=== PATIENT | female | born 1970 | race Caucasian/White ===

== ENCOUNTER → 2018-03-17 08:32 | Outpatient (CLI) | payer OTHER, SELFPAY ==
--- NOTE | 2018-03-17 08:33 | DI.MG.S_ITS ---
BILATERAL DIGITAL SCREENING MAMMOGRAM 3D/2D WITH CAD: 03/17/2018 CLINICAL: Routine screening. Family history of breast cancer. Comparison is made to exams dated: 02/15/2017 mammogram, 01/22/2017 mammogram, and 07/08/2015 mammogram - [facility]. The tissue of both breasts is heterogeneously dense. This may lower the sensitivity of mammography. Current study was also evaluated with a Computer Aided Detection (CAD) system. No significant masses, calcifications, or other findings are seen in either breast. There has been no significant interval change. IMPRESSION: NEGATIVE There is no mammographic evidence of malignancy. A 1 year screening mammogram is recommended. This exam was interpreted at Station ID: [id number]. NOTE: For mammograms, a report in lay terms will be sent to the patient. Approximately 15% of breast malignancies will not be visualized mammographically. In the management of a palpable breast mass, a negative mammogram must not discourage biopsy of a clinically suspicious lesion. Electronically Signed By: Otto starr/[email or web address]:03/18/2018 07:42:33 letter sent: Normal Exam ACR BI-RADS Category 1: Negative 3341F
== END ==
PROVIDERS: Family Provider Physician Assistant; PCP Physician Assistant; Visit Provider Physician Assistant
DX: Z12.31 Encounter for screening mammogram for malignant neoplasm of breast (principal); Z80.3 Family history of malignant neoplasm of breast
CPT/HCPCS: 77063; 77067

== ENCOUNTER → 2019-06-21 07:44 | Outpatient (CLI) | payer OTHER, SELFPAY ==
--- NOTE | 2019-06-21 | DI.MG.S_ITS ---
BILATERAL DIGITAL SCREENING MAMMOGRAM 3D/2D WITH CAD: 06/21/2019 CLINICAL: Routine screening. Family history of breast cancer. Comparison is made to exams dated: 03/17/2018 mammogram, 01/22/2017 mammogram, and 07/08/2015 mammogram - [facility]. The tissue of both breasts is heterogeneously dense. This may lower the sensitivity of mammography. Current study was also evaluated with a Computer Aided Detection (CAD) system. No significant masses, calcifications, or other findings are seen in either breast. There has been no significant interval change. IMPRESSION: NEGATIVE There is no mammographic evidence of malignancy. A 1 year screening mammogram is recommended. This exam was interpreted at Station ID: [id number]. NOTE: For mammograms, a report in lay terms will be sent to the patient. Approximately 15% of breast malignancies will not be visualized mammographically. In the management of a palpable breast mass, a negative mammogram must not discourage biopsy of a clinically suspicious lesion. Electronically Signed By: Don mayes/[email or web address]:06/21/2019 08:37:22 letter sent: Normal Exam ACR BI-RADS Category 1: Negative 3341F
== END ==
PROVIDERS: Family Provider Physician Assistant; PCP Physician Assistant; Visit Provider Physician Assistant
DX: Z12.31 Encounter for screening mammogram for malignant neoplasm of breast (principal); Z80.3 Family history of malignant neoplasm of breast
CPT/HCPCS: 77063; 77067

== ENCOUNTER → 2020-07-16 16:19 | Outpatient (CLI) | payer OTHER, SELFPAY ==
--- NOTE | 2020-07-16 | DI.MG.S_ITS ---
BILATERAL DIGITAL SCREENING MAMMOGRAM 3D/2D WITH CAD: 07/16/2020 CLINICAL: Routine screening. Family history of breast cancer. Comparison is made to exams dated: 06/21/2019 mammogram, 03/17/2018 mammogram, 02/15/2017 mammogram, and 01/22/2017 mammogram - [facility]. There are scattered fibroglandular elements in both breasts. Current study was also evaluated with a Computer Aided Detection (CAD) system. No significant masses, calcifications, or other findings are seen in either breast. There has been no significant interval change. IMPRESSION: NEGATIVE There is no mammographic evidence of malignancy. A 1 year screening mammogram is recommended. This exam was interpreted at Station ID: [id number]. NOTE: For mammograms, a report in lay terms will be sent to the patient. Approximately 15% of breast malignancies will not be visualized mammographically. In the management of a palpable breast mass, a negative mammogram must not discourage biopsy of a clinically suspicious lesion. Electronically Signed By: Dina keyes/alexandria:07/23/2020 11:43:28 letter sent: Normal Exam ACR BI-RADS Category 1: Negative 3341F
== END ==
PROVIDERS: Family Provider Physician Assistant; PCP Physician Assistant; Referring Provider Physician Assistant; Visit Provider Physician Assistant
DX: Z12.31 Encounter for screening mammogram for malignant neoplasm of breast (principal); Z80.3 Family history of malignant neoplasm of breast
CPT/HCPCS: 77063; 77067

== ENCOUNTER → 2021-09-05 16:54 | Outpatient (CLI) | payer OTHER, SELFPAY ==
[2021-09-05 17:57] LABS: Add Manual Diff / Slide Review NO; Basophils Absolute Auto 0 /uL (0-100); Basophils Percent Auto 0.6 % (0-2); Eosinophils Absolute Auto 200 /uL (0-450); Eosinophils Percent Auto 2.1 % (2-4); Hematocrit 39.7 % (36-46); Hemoglobin 13.4 g/dL (12.0-16.0); Lymphocytes Absolute Auto 2500 /uL (1100-4500); Mean Corpuscular HGB Conc 33.8 % (30-36); Mean Corpuscular Hemoglobin 28.8 PG (26-34); Monocytes Absolute Auto 500 /uL (0-900); Monocytes Percent Auto 6.3 % (3-14); Neutrophils Absolute Auto 4100 /uL (1500-7000); Platelet Count 242 X10^3/uL (150-400); Red Blood Cell Count 4.67 X10^6/uL (4.0-5.2); Red Cell Distribution Width 13.4 % (11.6-14.8); White Blood Cell Count 7.3 X10^3/uL (4.5-11.0)
[2021-09-05 18:33] LABS: INR 1.1 (0.9-1.3); Prothrombin Time 12.1 SECONDS (10.1-12.7)
[2021-09-05 19:10] LABS: Alanine Aminotransferase 105 IU/L (<35); Albumin 4.4 g/dL (3.5-5.0); Albumin Globulin Ratio 0.9 (1.0-2.8); Alkaline Phosphatase 430 U/L (38-126); Aspartate Aminotransferase 82 IU/L (14-36); Bilirubin Total 0.6 mg/dL (0.2-1.3); Blood Urea Nitrogen 13 mg/dL (7-17); Calcium 10.1 mg/dL (8.4-10.2); Carbon Dioxide 28 mmol/L (22-32); Chloride 103 mmol/L (98-107); Estimated Glomerular Filt Rate > 60.0 mL/min (>60); Globulin 4.8 g/dL (1.7-4.1); Glucose 98 mg/dL (70-100); HEMOLYSIS < 15 (0-50); Potassium 4.2 mmol/L (3.4-5.1); Sodium 140 mmol/L (137-145); Total Protein 9.2 g/dL (6.3-8.2)
[2021-09-06 06:50] LABS: Alpha Fetoprotein 1.9 ng/mL (0.0-8.3)
== END ==
PROVIDERS: Family Provider Physician Assistant; PCP Physician Assistant; Referring Provider Internal Medicine Gastroenterology; Visit Provider Internal Medicine Gastroenterology
DX: K74.60 Unspecified cirrhosis of liver (principal); K74.3 Primary biliary cirrhosis; R79.89 Other specified abnormal findings of blood chemistry
CPT/HCPCS: 36415; 80053; 82105; 85025; 85610

== ENCOUNTER → 2021-09-15 16:37 | Outpatient (CLI) | payer OTHER, SELFPAY ==
--- NOTE | 2021-09-15 | DI.MG.S_ITS ---
BILATERAL DIGITAL SCREENING MAMMOGRAM 3D/2D WITH CAD: 09/15/2021 CLINICAL: Routine screening. Family history of breast cancer. Comparison is made to exams dated: 07/16/2020 mammogram, 06/21/2019 mammogram, and 03/17/2018 mammogram - [facility]. There are scattered fibroglandular elements in both breasts. Current study was also evaluated with a Computer Aided Detection (CAD) system. No significant masses, calcifications, or other findings are seen in either breast. There has been no significant interval change. IMPRESSION: NEGATIVE There is no mammographic evidence of malignancy. A 1 year screening mammogram is recommended. This exam was interpreted at Station ID: [id number]. NOTE: For mammograms, a report in lay terms will be sent to the patient. Approximately 15% of breast malignancies will not be visualized mammographically. In the management of a palpable breast mass, a negative mammogram must not discourage biopsy of a clinically suspicious lesion. Electronically Signed By: Jason [email or web address]:09/16/2021 09:48:41 letter sent: Normal Exam ACR BI-RADS Category 1: Negative 3341F
== END ==
PROVIDERS: Referring Provider Physician Assistant; Visit Provider Physician Assistant
DX: Z12.31 Encounter for screening mammogram for malignant neoplasm of breast (principal); Z80.3 Family history of malignant neoplasm of breast
CPT/HCPCS: 77063; 77067

== ENCOUNTER → 2021-10-29 11:41 | Outpatient (CLI) | payer OTHER, SELFPAY ==
--- NOTE | 2021-10-29 | DI.US.S_ITS ---
PROCEDURE: US ABDOMEN COMPLETE INDICATIONS: biliary cirrhosis,abnormal finding blood chemistry TECHNIQUE: Real-time scanning was performed of the abdominal and retroperitoneal organs, with image documentation. COMPARISON: [facility], US, ABDOMEN COMPLETE, 03/05/2017, 8:26. FINDINGS: Liver: The liver appears somewhat small and has some heterogeneity of echo pattern. The surface is smooth. Question cirrhotic change. Gallbladder: Surgically absent Biliary ducts: Intrahepatic bile ducts are non-dilated. Extrahepatic bile duct caliber measures 2.4 mm at the common hepatic duct and 6 mm at the common bile duct. Normal is 6-7 mm or less in diameter, or 10 mm or less post-cholecystectomy. Pancreas: Visualized portions of the pancreas are sonographically normal. Spleen: Spleen is normal in size and homogeneous in echotexture. It measures 10.2 cm. Kidneys: Kidneys are normal in size and echotexture. Right kidney measures 10.6 cm long; left kidney measures 10.4 cm long. No hydronephrosis or nephrolithiasis. No solid masses. Aorta: Visualized aorta is normal in caliber at less than 3 cm. Iliacs: Proximal common iliac arteries are normal in caliber at less than 2.5 cm. IVC: Intrahepatic inferior vena cava is patent. Miscellaneous: No free abdominal fluid. IMPRESSION: 1. Question possible cirrhotic change in the liver. 2. No dilated bile ducts. 3. Remote cholecystectomy. Comment:. Consider multiphase CT or MRI for further evaluation of the liver. Dictated by: Papo Howard M.D. on 10/29/2021 at 14:11 Approved by: Papo Howard M.D. on 10/29/2021 at 14:19
== END ==
PROVIDERS: Referring Provider Internal Medicine Gastroenterology; Visit Provider Internal Medicine Gastroenterology
DX: K74.3 Primary biliary cirrhosis (principal); K74.60 Unspecified cirrhosis of liver; R79.89 Other specified abnormal findings of blood chemistry; Z90.49 Acquired absence of other specified parts of digestive tract
CPT/HCPCS: 76700

== ENCOUNTER → 2021-10-30 07:28 | Outpatient (CLI) | payer OTHER, SELFPAY ==
[2021-10-30 08:53] LABS: Add Manual Diff / Slide Review NO; Basophils Absolute Auto 100 /uL (0-100); Basophils Percent Auto 0.9 % (0-2); Eosinophils Absolute Auto 100 /uL (0-450); Eosinophils Percent Auto 2.7 % (2-4); Hematocrit 38.9 % (36-46); Hemoglobin 13.1 g/dL (12.0-16.0); Lymphocytes Absolute Auto 1600 /uL (1100-4500); Lymphocytes Percent Auto 29.6 % (25-40); Mean Corpuscular HGB Conc 33.8 % (30-36); Mean Corpuscular Hemoglobin 29.4 PG (26-34); Mean Corpuscular Volume 86.9 fL (80-100); Monocytes Absolute Auto 400 /uL (0-900); Monocytes Percent Auto 7.2 % (3-14); Neutrophils Absolute Auto 3300 /uL (1500-7000); Neutrophils Percent Auto 59.6 % (50-75); Platelet Count 211 X10^3/uL (150-400); Red Blood Cell Count 4.48 X10^6/uL (4.0-5.2); Red Cell Distribution Width 13.4 % (11.6-14.8); White Blood Cell Count 5.5 X10^3/uL (4.5-11.0)
[2021-10-30 08:55] LABS: INR 1.1 (0.9-1.3); Prothrombin Time 11.7 SECONDS (10.1-12.7)
[2021-10-30 13:19] LABS: Alanine Aminotransferase 61 IU/L (<35); Albumin 4.3 g/dL (3.5-5.0); Albumin Globulin Ratio 0.9 (1.0-2.8); Alkaline Phosphatase 332 U/L (38-126); Aspartate Aminotransferase 55 IU/L (14-36); BUN Creatinine Ratio 17.7 (6-22); Bilirubin Total 0.5 mg/dL (0.2-1.3); Blood Urea Nitrogen 11 mg/dL (7-17); Carbon Dioxide 30 mmol/L (22-32); Chloride 105 mmol/L (98-107); Estimated Glomerular Filt Rate > 60.0 mL/min (>60); Globulin 4.7 g/dL (1.7-4.1); Glucose 98 mg/dL (70-100); HEMOLYSIS < 15 (0-50); Potassium 4.5 mmol/L (3.4-5.1); Sodium 143 mmol/L (137-145)
== END ==
PROVIDERS: PCP Physician Assistant; Referring Provider Internal Medicine Gastroenterology; Visit Provider Internal Medicine Gastroenterology
DX: K74.3 Primary biliary cirrhosis (principal)
CPT/HCPCS: 36415; 80053; 85025; 85610

== ENCOUNTER → 2022-03-07 10:44 | Outpatient (CLI) | payer OTHER, SELFPAY ==
[2022-03-07 11:32] LABS: Add Manual Diff / Slide Review NO; Basophils Absolute Auto 0 /uL (0-100); Basophils Percent Auto 0.7 % (0-2); Eosinophils Absolute Auto 100 /uL (0-450); Eosinophils Percent Auto 1.7 % (2-4); Hematocrit 37.1 % (36-46); Hemoglobin 12.7 g/dL (12.0-16.0); Lymphocytes Absolute Auto 1800 /uL (1100-4500); Lymphocytes Percent Auto 28.4 % (25-40); Mean Corpuscular HGB Conc 34.2 % (30-36); Mean Corpuscular Hemoglobin 29.2 PG (26-34); Mean Corpuscular Volume 85.5 fL (80-100); Monocytes Absolute Auto 600 /uL (0-900); Monocytes Percent Auto 9.6 % (3-14); Neutrophils Absolute Auto 3800 /uL (1500-7000); Neutrophils Percent Auto 59.6 % (50-75); Platelet Count 198 X10^3/uL (150-400); Red Blood Cell Count 4.34 X10^6/uL (4.0-5.2); Red Cell Distribution Width 13.3 % (11.6-14.8); White Blood Cell Count 6.3 X10^3/uL (4.5-11.0)
[2022-03-07 11:52] LABS: Alanine Aminotransferase 78 IU/L (<35); Albumin 4.1 g/dL (3.5-5.0); Alkaline Phosphatase 280 U/L (38-126); Aspartate Aminotransferase 62 IU/L (14-36); BUN Creatinine Ratio 18.5 (6-22); Bilirubin Total 0.8 mg/dL (0.2-1.3); Blood Urea Nitrogen 12 mg/dL (7-17); Calcium 9.2 mg/dL (8.4-10.2); Carbon Dioxide 27 mmol/L (22-32); Chloride 103 mmol/L (98-107); Estimated Glomerular Filt Rate > 60 mL/min (>60); Glucose 85 mg/dL (70-100); HEMOLYSIS < 15 (0-50); Potassium 4.3 mmol/L (3.4-5.1); Sodium 140 mmol/L (137-145); Total Protein 8.1 g/dL (6.3-8.2)
== END ==
PROVIDERS: PCP Physician Assistant; Referring Provider Internal Medicine Gastroenterology; Visit Provider Internal Medicine Gastroenterology
DX: K74.3 Primary biliary cirrhosis (principal); K74.60 Unspecified cirrhosis of liver
CPT/HCPCS: 36415; 80053; 85025

== ENCOUNTER → 2022-08-21 14:20 | Outpatient (CLI) | payer OTHER, SELFPAY ==
--- NOTE | 2022-08-21 14:23 | DI.US.S_ITS ---
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 TECHNIQUE: Real-time focused scanning was performed of the abdomen, with image documentation. COMPARISON: [facility], US, US ABDOMEN COMPLETE, 10/29/2021, 12:27. FINDINGS: The liver demonstrates normal size and demonstrates a coarsened echotexture, yet without focal masses or nodules. Status post cholecystectomy. There is no biliary dilatation, the common bile duct measures 6 mm. There is a 12 mm cyst at the tail of the pancreas, which previously measured up to 10 mm. IMPRESSION: Coarsened liver echotexture, yet without masses seen by ultrasound. Status post cholecystectomy, without biliary dilatation. There is a cystic focus seen at the tail of the pancreas, which is slightly increased in size compared to the prior. Dictated by: Faustino Mendez M.D. on 08/21/2022 at 14:02 Approved by: Faustino Mendez M.D. on 08/21/2022 at 14:03
[2022-08-21 15:17] LABS: Add Manual Diff / Slide Review NO; Basophils Absolute Auto 0 /uL (0-100); Basophils Percent Auto 0.6 % (0-2); Eosinophils Absolute Auto 100 /uL (0-450); Eosinophils Percent Auto 1.5 % (2-4); Hematocrit 38.5 % (36-46); Hemoglobin 13.1 g/dL (12.0-16.0); Lymphocytes Absolute Auto 2300 /uL (1100-4500); Lymphocytes Percent Auto 30.7 % (25-40); Mean Corpuscular HGB Conc 33.9 % (30-36); Mean Corpuscular Hemoglobin 28.7 PG (26-34); Mean Corpuscular Volume 84.7 fL (80-100); Monocytes Absolute Auto 600 /uL (0-900); Monocytes Percent Auto 7.4 % (3-14); Neutrophils Absolute Auto 4500 /uL (1500-7000); Neutrophils Percent Auto 59.8 % (50-75); Platelet Count 216 X10^3/uL (150-400); Red Blood Cell Count 4.55 X10^6/uL (4.0-5.2); Red Cell Distribution Width 13.6 % (11.6-14.8); White Blood Cell Count 7.5 X10^3/uL (4.5-11.0)
[2022-08-21 15:38] LABS: INR 1.1 (0.9-1.3); Prothrombin Time 12.4 SECONDS (10.1-12.7)
[2022-08-21 15:46] LABS: Alanine Aminotransferase 58 IU/L (<35); Albumin 4.1 g/dL (3.5-5.0); Albumin Globulin Ratio 0.9 (1.0-2.8); Alkaline Phosphatase 306 U/L (38-126); Aspartate Aminotransferase 47 IU/L (14-36); BUN Creatinine Ratio 17.9 (6-22); Bilirubin Total 0.5 mg/dL (0.2-1.3); Blood Urea Nitrogen 10 mg/dL (7-17); Calcium 9.4 mg/dL (8.4-10.2); Carbon Dioxide 25 mmol/L (22-32); Chloride 103 mmol/L (98-107); Cholesterol 222 mg/dL (140-199); Estimated Glomerular Filt Rate > 60 mL/min (>60); Globulin 4.4 g/dL (1.7-4.1); Glucose 83 mg/dL (70-100); HDL Cholesterol 87 mg/dL (40-60); HEMOLYSIS < 15 (0-50); LDL Cholesterol Calculated 111 mg/dL (<100); Sodium 138 mmol/L (137-145); Total Protein 8.5 g/dL (6.3-8.2); Triglycerides 122 mg/dL (35-150)
[2022-08-21 16:14] LABS: Thyroid Stimulating Hormone 1.98 uIU/mL (0.47-4.68)
[2022-08-23 08:28] LABS: Alpha Fetoprotein <1.8 ng/mL (0.0-9.2)
== END ==
PROVIDERS: Referring Provider Internal Medicine Gastroenterology; Visit Provider Internal Medicine Gastroenterology
DX: K83.09 Other cholangitis (principal); K86.2 Cyst of pancreas; K74.60 Unspecified cirrhosis of liver; R79.89 Other specified abnormal findings of blood chemistry; Z90.49 Acquired absence of other specified parts of digestive tract
CPT/HCPCS: 36415; 76705; 80053; 80061; 82105; 84443; 85025; 85610

== ENCOUNTER → 2022-09-28 07:46 | Outpatient (CLI) | payer OTHER, SELFPAY ==
[2022-09-28 09:00] LABS: Alanine Aminotransferase 56 IU/L (<35); Albumin 3.9 g/dL (3.5-5.0); Alkaline Phosphatase 291 U/L (38-126); Aspartate Aminotransferase 44 IU/L (14-36); Bilirubin Total 0.4 mg/dL (0.2-1.3); Globulin 4.1 g/dL (1.7-4.1); HEMOLYSIS < 15 (0-50)
== END ==
PROVIDERS: Referring Provider Internal Medicine Gastroenterology; Visit Provider Internal Medicine Gastroenterology
DX: K74.3 Primary biliary cirrhosis (principal); K74.60 Unspecified cirrhosis of liver; R79.89 Other specified abnormal findings of blood chemistry; K86.2 Cyst of pancreas
CPT/HCPCS: 36415; 80076

== ENCOUNTER → 2022-10-01 17:13 | Outpatient (CLI) | payer OTHER, SELFPAY ==
--- NOTE | 2022-10-01 | DI.MG.S_ITS ---
BILATERAL DIGITAL SCREENING MAMMOGRAM 3D/2D WITH CAD: 10/01/2022 CLINICAL: Routine screening. Family history of breast cancer. Comparison is made to exams dated: 09/15/2021 mammogram, 07/16/2020 mammogram, and 06/21/2019 mammogram - [facility]. There are scattered areas of fibroglandular density in both breasts (category b / 25%-50% glandular tissue). Current study was also evaluated with a Computer Aided Detection (CAD) system. No significant masses, calcifications, or other findings are seen in either breast. There has been no significant interval change. IMPRESSION: NEGATIVE There is no mammographic evidence of malignancy. A 1 year screening mammogram is recommended. Based on the Tyrer Cuzick model (a risk assessment model) the patient's lifetime risk is 13.5% and her 10 year risk is 3.5%. According to the ACR, ACS, and NCCN guidelines, an annual breast MRI exam along with mammogram is recommended if the patient's lifetime risk is 20% or greater. This exam was interpreted at Station ID: [id number]. NOTE: For mammograms, a report in lay terms will be sent to the patient. Approximately 15% of breast malignancies will not be visualized mammographically. In the management of a palpable breast mass, a negative mammogram must not discourage biopsy of a clinically suspicious lesion. Electronically Signed By: Kristopher Perdomo M.D., [email or web address]:10/02/2022 14:01:28 letter sent: Normal Exam ACR BI-RADS Category 1: Negative 3341F
== END ==
PROVIDERS: PCP Physician Assistant; Referring Provider Physician Assistant; Visit Provider Physician Assistant
DX: Z12.31 Encounter for screening mammogram for malignant neoplasm of breast (principal); Z80.3 Family history of malignant neoplasm of breast
CPT/HCPCS: 77063; 77067

== ENCOUNTER → 2022-10-23 09:09 | Outpatient (CLI) | payer OTHER, SELFPAY ==
--- NOTE | 2022-10-23 | DI.CT.S_ITS ---
PROCEDURE: CT ABDOMEN PANCREATIC PROTOCOL INDICATIONS: Cyst of pancreas TECHNIQUE: After the administration of intravenous contrast, 3 mm thick pancreatic-phase images acquired from the diaphragm to the iliac crests. 3 mm thick coronal and sagittal reformats were performed. For radiation dose reduction, the following was used: automated exposure control, adjustment of mA and/or kV according to patient size. COMPARISON: [facility], MR, ABDOMEN WITHOUT CONTRAST, 06/14/2013, 10:55. [facility], US, US ABDOMEN LIMITED, 08/21/2022, 14:30. FINDINGS: Image quality: Adequate Lung bases: No pleural effusion. Pancreas: No main ductal dilation demonstrated. No definitive or obvious correlate to the suspected pancreatic cyst described in the report for the prior ultrasound is identified. There is a possible/candidate cystic structure at the pancreatic tail measuring 7 millimeters (series 2, image 36) versus artifact. Other solid organs: Morphologic changes of cirrhosis. Gallbladder is absent. Biliary system is non dilated. Spleen is normal in size and enhancement. No adrenal nodules. Kidneys are normal in size and enhancement, without hydronephrosis. Small nonobstructing stone left mid kidney. Peritoneum and bowel: Visualized large and small bowel is non-dilated. No free air or substantial free fluid Nodes and vessels: Prominent terri hepatis lymph nodes present, nonspecific. Aorta and inferior vena cava are normal in size. Upper abdominal varices are present. Bones: Multilevel degenerative change of the visualized spine. IMPRESSION: No definitive or obvious correlate to the suspected pancreatic cyst described in the report for the prior ultrasound is identified. There is a possible/candidate cystic structure at the pancreatic tail measuring 7 millimeters versus artifact. Clinical significance of this possible finding is uncertain. Imaging follow-up could be obtained as clinically indicated. No dilation of the main pancreatic duct is demonstrated. Morphologic changes of cirrhosis. Dictated by: Stephen Soler M.D. on 10/23/2022 at 10:22 Approved by: Stephen Soler M.D. on 10/23/2022 at 10:42
== END ==
PROVIDERS: Referring Provider Internal Medicine Gastroenterology; Visit Provider Internal Medicine Gastroenterology
DX: K86.2 Cyst of pancreas (principal); K74.60 Unspecified cirrhosis of liver; N20.0 Calculus of kidney; Z90.49 Acquired absence of other specified parts of digestive tract
CPT/HCPCS: 74160; Q9967

== ENCOUNTER → 2023-03-05 06:46 | Outpatient (CLI) | payer OTHER, SELFPAY ==
--- NOTE | 2023-03-05 06:49 | DI.US.S_ITS ---
PROCEDURE: US ABDOMEN LIMITED INDICATIONS: CIRRHOSIS TECHNIQUE: Real-time focused scanning was performed of the abdomen, with image documentation. COMPARISON: [facility], CT, CT ABDOMEN PANCREATIC PROTOCOL, 10/23/2022, 9:33. [facility], US, US ABDOMEN LIMITED, 08/21/2022, 14:30. FINDINGS: Liver length of 14.0 centimeters. Coarsened hepatic echotexture. Morphologic changes of cirrhosis better visualized on prior CT. No suspicious focal liver lesion identified sonographically. Prior cholecystectomy. No biliary ductal dilation. Extrahepatic bile duct measures 6 millimeters. At or adjacent to the pancreatic head an ovoid hypoechoic structure is documented measuring 1.6 x 1.0 x 1.8 centimeters. IMPRESSION: 1. No suspicious focal liver lesion identified sonographically. 2. A 1.8 centimeter structure is present at or adjacent to the pancreatic head, probably a prominent terri hepatis lymph node, nonspecific, can be seen in the setting of chronic liver disease. Pancreatic cyst also possible however no definite pancreatic cyst was visualized in this area on prior pancreatic protocol CT. Dictated by: Stephen Soler M.D. on 03/05/2023 at 8:57 Approved by: Stephen Soler M.D. on 03/05/2023 at 9:02
[2023-03-05 08:15] LABS: Add Manual Diff / Slide Review NO; Basophils Absolute Auto 0 /uL (0-100); Basophils Percent Auto 0.7 % (0-2); Eosinophils Absolute Auto 100 /uL (0-450); Eosinophils Percent Auto 2.1 % (2-4); Hematocrit 38.2 % (36-46); Hemoglobin 13.2 g/dL (12.0-16.0); Lymphocytes Absolute Auto 1900 /uL (1100-4500); Lymphocytes Percent Auto 31.7 % (25-40); Mean Corpuscular HGB Conc 34.6 % (30-36); Mean Corpuscular Hemoglobin 29.4 PG (26-34); Monocytes Absolute Auto 500 /uL (0-900); Monocytes Percent Auto 8.2 % (3-14); Neutrophils Absolute Auto 3400 /uL (1500-7000); Neutrophils Percent Auto 57.3 % (50-75); Platelet Count 191 X10^3/uL (150-400); Red Blood Cell Count 4.49 X10^6/uL (4.0-5.2); Red Cell Distribution Width 13.6 % (11.6-14.8); White Blood Cell Count 5.9 X10^3/uL (4.5-11.0)
[2023-03-05 08:26] LABS: INR 1.1 (0.9-1.3); Prothrombin Time 12.2 SECONDS (10.1-12.7)
[2023-03-05 08:30] LABS: Alanine Aminotransferase 54 IU/L (<35); Alkaline Phosphatase 210 U/L (38-126); Aspartate Aminotransferase 46 IU/L (14-36); Bilirubin Total 0.6 mg/dL (0.2-1.3); Blood Urea Nitrogen 11 mg/dL (7-17); Calcium 9.1 mg/dL (8.4-10.2); Carbon Dioxide 28 mmol/L (22-32); Chloride 103 mmol/L (98-107); Estimated Glomerular Filt Rate > 60 mL/min (>60); Globulin 3.9 g/dL (1.7-4.1); Glucose 94 mg/dL (70-100); HEMOLYSIS < 15 (0-50); Potassium 3.9 mmol/L (3.4-5.1); Sodium 138 mmol/L (137-145); Total Protein 7.9 g/dL (6.3-8.2)
[2023-03-06 09:30] LABS: Alpha Fetoprotein 2.5 ng/mL (0.0-9.2)
== END ==
PROVIDERS: Referring Provider Internal Medicine Gastroenterology; Visit Provider Internal Medicine Gastroenterology
DX: K86.2 Cyst of pancreas (principal); K74.60 Unspecified cirrhosis of liver
CPT/HCPCS: 36415; 76705; 80053; 82105; 85025; 85610

== ENCOUNTER → 2023-04-12 12:08 | Outpatient (CLI) | payer OTHER, SELFPAY ==
--- NOTE | 2023-04-12 12:16 | DI.CT.S_ITS ---
PROCEDURE: CT ABDOMEN LIVER PROTOCOL INDICATIONS: Unspecified cirrhosis of liver TECHNIQUE: 4 phase scanning was performed. Non-contrast 5 mm axial sections acquired from the diaphragm to the iliac crests. Following the administration of intravenous contrast, 5 mm thick arterial-phase, portal venous-phase, and 5-minute delayed phase images were acquired through the liver. 5 mm thick coronal and sagittal reformats were performed. For radiation dose reduction, the following was used: automated exposure control, adjustment of mA and/or kV according to patient size. COMPARISON: [facility], CT, CT ABDOMEN PANCREATIC PROTOCOL, 10/23/2022, 9:33. [facility], US, US ABDOMEN COMPLETE, 10/29/2021, 12:27. FINDINGS: Image quality: Excellent. Lung bases: Lung bases are clear. Heart size is normal. Liver: Micronodular liver margin. Mild left and caudate lobe hypertrophy. No suspicious arterial enhancement or washout lesions in the liver. Other solid organs: Gallbladder surgically absent. Biliary system is non dilated, as expected post cholecystectomy. Pancreas is normal in morphology. No definite cyst or solid mass. No pancreatic ductal dilatation. The spleen is at the upper limits of normal size measuring 12.3 cm in length and normal in enhancement. No adrenal nodules. Both kidneys are normal size and demonstrate symmetric enhancement. There is a punctate nonobstructing left midpole calculus. No hydroureter. Nodes and vessels: There are several borderline enlarged periceliac, periportal, and pericaval adenopathy. One of the largest measures 1.3 cm in short axis, stable, previously measuring 1.2 cm. IVC and aorta are normal caliber. Splenic vein is patent. Portal vein is normal size. Bowel and peritoneum: Unenhanced bowel loops are normal in caliber. No free fluid or air. Bones: No suspicious bony lesions. No vertebral body compression fractures. Miscellaneous: No ventral hernias. IMPRESSION: 1. Cirrhotic liver morphology without focal liver lesion. 2. Mildly enlarging spleen compared to ultrasound 10/29/21. 3. Nonobstructing left nephrolithiasis. 4. Upper abdominal adenopathy, commonly seen in primary biliary cirrhosis. Dictated by: Nereida Sultana M.D. on 04/12/2023 at 15:41 Approved by: Nereida Sultana M.D. on 04/12/2023 at 15:52
[2023-04-12 13:37] LABS: Add Manual Diff / Slide Review NO; Basophils Absolute Auto 0 /uL (0-100); Basophils Percent Auto 0.8 % (0-2); Eosinophils Absolute Auto 100 /uL (0-450); Eosinophils Percent Auto 1.8 % (2-4); Hematocrit 37.4 % (36-46); Hemoglobin 12.8 g/dL (12.0-16.0); Lymphocytes Absolute Auto 2000 /uL (1100-4500); Lymphocytes Percent Auto 33.9 % (25-40); Mean Corpuscular HGB Conc 34.2 % (30-36); Mean Corpuscular Volume 84.9 fL (80-100); Monocytes Absolute Auto 500 /uL (0-900); Monocytes Percent Auto 8.3 % (3-14); Neutrophils Absolute Auto 3300 /uL (1500-7000); Neutrophils Percent Auto 55.2 % (50-75); Platelet Count 184 X10^3/uL (150-400); Red Blood Cell Count 4.41 X10^6/uL (4.0-5.2); Red Cell Distribution Width 13.1 % (11.6-14.8); White Blood Cell Count 5.9 X10^3/uL (4.5-11.0)
[2023-04-12 14:07] LABS: INR 1.1 (0.9-1.3); Prothrombin Time 12.2 SECONDS (10.1-12.7)
[2023-04-12 14:15] LABS: Alanine Aminotransferase 89 IU/L (<35); Albumin 4.1 g/dL (3.5-5.0); Alkaline Phosphatase 227 U/L (38-126); Aspartate Aminotransferase 67 IU/L (14-36); BUN Creatinine Ratio 23.2 (6-22); Bilirubin Total 0.4 mg/dL (0.2-1.3); Blood Urea Nitrogen 13 mg/dL (7-17); Calcium 9.1 mg/dL (8.4-10.2); Carbon Dioxide 26 mmol/L (22-32); Chloride 102 mmol/L (98-107); Estimated Glomerular Filt Rate > 60 mL/min (>60); Globulin 4.1 g/dL (1.7-4.1); Glucose 81 mg/dL (70-100); HEMOLYSIS < 15 (0-50); Potassium 3.9 mmol/L (3.4-5.1); Sodium 136 mmol/L (137-145); Total Protein 8.2 g/dL (6.3-8.2)
[2023-04-13 06:36] LABS: Alpha Fetoprotein 2.5 ng/mL (0.0-9.2)
== END ==
PROVIDERS: PCP Family Medicine; Referring Provider Internal Medicine Gastroenterology; Visit Provider Internal Medicine Gastroenterology
DX: K86.2 Cyst of pancreas (principal); K74.60 Unspecified cirrhosis of liver; N20.0 Calculus of kidney; R16.1 Splenomegaly, not elsewhere classified
CPT/HCPCS: 36415; 74170; 80053; 82105; 85025; 85610; Q9967

== ENCOUNTER → 2023-05-17 12:33 | Outpatient (CLI) | payer OTHER, SELFPAY ==
[2023-05-17 13:47] LABS: Alanine Aminotransferase 68 IU/L (<35); Albumin 4.2 g/dL (3.5-5.0); Albumin Globulin Ratio 1.2 (1.0-2.8); Alkaline Phosphatase 209 U/L (38-126); Aspartate Aminotransferase 56 IU/L (14-36); Bilirubin Total 0.4 mg/dL (0.2-1.3); Bilirubin Unconjugated 0.2 mg/dL (0.0-1.1); Globulin 3.6 g/dL (1.7-4.1); HEMOLYSIS < 15 (0-50); Total Protein 7.8 g/dL (6.3-8.2)
== END ==
PROVIDERS: PCP Family Medicine; Referring Provider Internal Medicine Gastroenterology; Visit Provider Internal Medicine Gastroenterology
DX: K74.3 Primary biliary cirrhosis (principal); K74.60 Unspecified cirrhosis of liver; R79.89 Other specified abnormal findings of blood chemistry
CPT/HCPCS: 36415; 80076

== ENCOUNTER → 2023-06-08 08:16 | Outpatient (CLI) | payer OTHER, SELFPAY ==
--- NOTE | 2023-06-08 08:17 | DI.RAD.S_ITS ---
PROCEDURE: XR CHEST 2V INDICATIONS: Cough x 2 weeks TECHNIQUE: 2 views of the chest were acquired. COMPARISON: None. FINDINGS: Surgical changes and devices: None. Lungs and pleura: Lungs are clear. No pleural effusions or pneumothorax. Mediastinum: Left hilar fullness. Bones and chest wall: No suspicious bony abnormalities. Soft tissues appear unremarkable. IMPRESSION: Left hilar fullness, which may represent a prominent pulmonary artery, less likely mass. Recommend CT with contrast to exclude malignancy. Dictated by: Irwin Oliver M.D. on 06/08/2023 at 10:58 Approved by: Irwin Oliver M.D. on 06/08/2023 at 10:59
== END ==
PROVIDERS: PCP Family Medicine; Referring Provider Physician Assistant; Visit Provider Physician Assistant
DX: R05.9 Cough, unspecified (principal)
CPT/HCPCS: 71046

== ENCOUNTER → 2023-06-16 07:26 | Outpatient (CLI) | payer OTHER, SELFPAY ==
--- NOTE | 2023-06-16 07:31 | DI.CT.S_ITS ---
P with a the the ROCEDURE: CT CHEST W CON INDICATIONS: left hilar fullness on imaging TECHNIQUE: After the administration of intravenous contrast, 5 mm thick sections acquired from the pulmonary apices to the posterior costophrenic angles. 1 mm axial lung, 5 mm thick coronal and sagittal reformats and 7 mm axial MIP were acquired. For radiation dose reduction, the following was used: automated exposure control, adjustment of mA and/or kV according to patient size. COMPARISON: [facility], CT, CT ABDOMEN PANCREATIC PROTOCOL, 10/23/2022, 9:33. [facility], CT, CT ABDOMEN LIVER PROTOCOL, 04/12/2023, 12:39. [facility], CR, XR CHEST 2V, 06/08/2023, 8:26. FINDINGS: Image quality: Excellent. Lungs and pleura: On the previous CT, image 16 of series 6, there was a 2 mm nodule in the extreme left lateral lung base. On the current study, there is now a much larger nodule with spiculated margins and a small central cavity, measuring 2.1 x 1.3 cm on current image 238/3. Mediastinum: Heart size is normal. No pericardial effusion. There is a subcarinal lymph node mass which likely represents multiple conglomerate lymph nodes, which in total measure 3.5 x 4.6 x 2.4 cm. There is bilateral hilar lymph node enlargement, left greater than right. The left hilar lymph node measures approximately 1.2 x 1.9 cm. Thoracic aorta and central pulmonary arteries are normal in size. Esophagus is normal in caliber. No hiatal hernia. Bones and chest wall: No suspicious bony lesions. No vertebral body compression fractures. No axillary or supraclavicular adenopathy by size criteria. Thyroid gland is unremarkable . Abdomen: There is a cluster of abnormal right cardiophrenic lymph nodes, as before. Additionally, there are numerous enlarged periportal lymph nodes and celiac axis lymph nodes, as well as left gastric lymph nodes, as before. The liver has surface nodularity and a prominent left lobe consistent with cirrhosis. There is enlargement of the spleen. IMPRESSION: 1. Findings are highly suspicious for malignancy. Findings include a rapidly enlarging, mildly cavitary lung mass, subcarinal and bilateral hilar adenopathy, as well as upper abdominal adenopathy (including periportal, celiac, left gastric, and right cardiophrenic lymph nodes). 2. Cirrhosis, splenomegaly Comment: Consider lymphoma. Also, consider lymphoma and a separate process resulting in a rapidly expanding cavitary lung mass such as synchronous carcinoma versus fungal infection. Consider endoscopic subcarinal lymph node biopsy. Consider possible CT-guided biopsy of the lung lesion. Dictated by: Papo Howard M.D. on 06/16/2023 at 11:02 Approved by: Papo Howard M.D. on 06/16/2023 at 11:46
== END ==
PROVIDERS: PCP Student in an Organized Health Care Education/Training Program; Referring Provider Student in an Organized Health Care Education/Training Program; Visit Provider Student in an Organized Health Care Education/Training Program
DX: R91.8 Other nonspecific abnormal finding of lung field (principal); R93.89 Abnormal findings on diagnostic imaging of other specified body structures; R59.1 Generalized enlarged lymph nodes; K74.60 Unspecified cirrhosis of liver; R16.1 Splenomegaly, not elsewhere classified
CPT/HCPCS: 71260; Q9967

== ENCOUNTER → 2023-06-26 09:21 | Outpatient (CLI) | payer OTHER, SELFPAY ==
--- NOTE | 2023-06-26 09:24 | DI.CT.S_ITS ---
PROCEDURE: CT CHEST ABD PEL W CON INDICATIONS: Solitary pulmonary nodule TECHNIQUE: After the administration of oral and intravenous contrast, axial sections acquired from the supraclavicular neck to the pubic symphysis. Coronal and sagittal reformats were performed. For radiation dose reduction, the following was used: automated exposure control, adjustment of mA and/or kV according to patient size. COMPARISON: [facility], CT, CT ABDOMEN PANCREATIC PROTOCOL, 10/23/2022, 9:33. [facility], CR, XR CHEST 2V, 06/08/2023, 8:26. [facility], CT, CT CHEST W CON, 06/16/2023, 7:31. [facility], CT, CT ABDOMEN LIVER PROTOCOL, 04/12/2023, 12:39. FINDINGS: Image quality: Excellent. CHEST: Lower Neck: No enlarged lymph nodes. Thyroid: A low-density nodule is redemonstrated within the left thyroid lobe. Axillae: No enlarged lymph nodes. Chest Wall: Unremarkable. Lungs and Airways: Consolidative mass is redemonstrated at the lateral left lung base this measures 2.2 x 1.4 cm in the axial plane. This measured 2.4 x 1.4 cm on the comparison CT dated June 16, 2023. No new suspicious nodules or acute airspace opacities. Pleura: No pneumothorax or pleural effusions. Heart: Heart size is normal. No pericardial effusion. Thoracic Vessels: The aorta and pulmonary arteries demonstrate normal size. Mediastinum and Blanca: A 2.3 cm subcarinal lymph node is redemonstrated and is unchanged from the prior study. There is an enlarged 1.2 cm left hilar lymph node, unchanged. Esophagus: No wall thickening. No hiatal hernia. ABDOMEN: Liver: Unremarkable. Gallbladder: Surgically absent. Biliary ducts: Unremarkable. Pancreas: Unremarkable. Spleen: Unremarkable. Adrenal Glands: Unremarkable. Kidneys and Ureters: Unremarkable. Pararenal cysts are present within the left kidney. A nonobstructing 2 mm calculus is present in the left upper pole. Stomach and Bowel: Stomach, small bowel loops, and colon are unremarkable. The appendix is thin walled and gas filled. Peritoneum: No abnormal intraperitoneal fluid. No free air. Ventral Wall: No hernia. Abdominal Nodes: No retroperitoneal or mesenteric adenopathy by size criteria. Vessels: Aorta and inferior vena cava are normal in size. PELVIS: Pelvic Organs: Unremarkable. Bladder: Unremarkable. Pelvic Nodes: No enlarged lymph nodes. Miscellaneous: No inguinal hernias are seen. Bones: Unremarkable. IMPRESSION: 1. Consolidative mass at the left lung base is slightly decreased in size when compared with the study dated June 16, 2023. The small cavitary component visualized on the previous study is no longer seen. 2. Left hilar and mediastinal adenopathy, unchanged. 3. No subdiaphragmatic adenopathy or suspicious findings. 4. Normal appendix. 5. Small left thyroid nodule. If further characterization is warranted, nonemergent thyroid ultrasound could be used. Dictated by: Dina Jauregui M.D. on 06/27/2023 at 11:20 Approved by: Dina Jauregui M.D. on 06/27/2023 at 11:51
== END ==
PROVIDERS: PCP Student in an Organized Health Care Education/Training Program; Referring Provider Internal Medicine Hematology & Oncology; Visit Provider Internal Medicine Hematology & Oncology
DX: R91.8 Other nonspecific abnormal finding of lung field (principal); R59.0 Localized enlarged lymph nodes; E04.1 Nontoxic single thyroid nodule; K74.3 Primary biliary cirrhosis
CPT/HCPCS: 71260; 74177; Q9967

== ENCOUNTER → 2023-08-27 06:49 | Outpatient (CLI) | payer OTHER, SELFPAY ==
[2023-08-27 08:48] LABS: Prothrombin Time 11.4 SECONDS (9.4-12.5)
[2023-08-27 08:54] LABS: Add Manual Diff / Slide Review NO; Basophils Absolute Auto 0 /uL (0-100); Basophils Percent Auto 0.5 % (0-2); Eosinophils Absolute Auto 200 /uL (0-450); Eosinophils Percent Auto 4.2 % (2-4); Hematocrit 37.9 % (36-46); Hemoglobin 12.8 g/dL (12.0-16.0); Lymphocytes Absolute Auto 1400 /uL (1100-4500); Lymphocytes Percent Auto 26.1 % (25-40); Mean Corpuscular HGB Conc 33.8 % (30-36); Mean Corpuscular Hemoglobin 28.2 PG (26-34); Mean Corpuscular Volume 83.4 fL (80-100); Monocytes Absolute Auto 400 /uL (0-900); Monocytes Percent Auto 7.3 % (3-14); Neutrophils Absolute Auto 3300 /uL (1500-7000); Neutrophils Percent Auto 61.9 % (50-75); Platelet Count 177 X10^3/uL (150-400); Red Blood Cell Count 4.55 X10^6/uL (4.0-5.2); Red Cell Distribution Width 15.3 % (11.6-14.8); White Blood Cell Count 5.3 X10^3/uL (4.5-11.0)
[2023-08-27 08:57] LABS: Alanine Aminotransferase 47 IU/L (<35); Albumin 4.3 g/dL (3.5-5.0); Alkaline Phosphatase 210 U/L (38-126); BUN Creatinine Ratio 22.2 (6-22); Bilirubin Total 0.6 mg/dL (0.2-1.3); Blood Urea Nitrogen 12 mg/dL (7-17); Calcium 9.7 mg/dL (8.4-10.2); Carbon Dioxide 24 mmol/L (22-32); Chloride 103 mmol/L (98-107); Estimated Glomerular Filt Rate > 60 mL/min (>60); Globulin 4.4 g/dL (1.7-4.1); Glucose 114 mg/dL (70-100); HEMOLYSIS < 15 (0-50); Potassium 3.7 mmol/L (3.4-5.1); Sodium 139 mmol/L (137-145); Total Protein 8.7 g/dL (6.3-8.2)
[2023-08-27 15:26] LABS: Aspartate Aminotransferase 46 IU/L (14-36)
[2023-08-28 10:56] LABS: Alpha Fetoprotein 2.7 ng/mL (0.0-9.2)
== END ==
LOC: RESP 06:51
PROVIDERS: Internal Medicine Gastroenterology; PCP Student in an Organized Health Care Education/Training Program; Referring Provider Internal Medicine; Visit Provider Internal Medicine
DX: K74.60 Unspecified cirrhosis of liver (principal); K86.2 Cyst of pancreas
CPT/HCPCS: 36415; 80053; 82105; 85025; 85610; 94060; 94726; 94729

== ENCOUNTER → 2023-10-04 06:50 | Outpatient (CLI) | payer OTHER, SELFPAY ==
--- NOTE | 2023-10-04 06:53 | DI.CT.S_ITS ---
PROCEDURE: CT CHEST W CON INDICATIONS: mediastinal adenopathy and 2cm LLL lung lesion TECHNIQUE: After the administration of intravenous contrast, 5 mm thick sections acquired from the pulmonary apices to the posterior costophrenic angles. 1 mm axial lung, 5 mm thick coronal and sagittal reformats and 7 mm axial MIP were acquired. For radiation dose reduction, the following was used: automated exposure control, adjustment of mA and/or kV according to patient size. COMPARISON: [facility], CT, CT CHEST ABD PEL W CON, 06/26/2023, 10:30. [facility], CT, CT CHEST W CON, 06/16/2023, 7:31. FINDINGS: Image quality: Diagnostic. Lower Neck: No enlarged lymph nodes. Thyroid: No thyroid nodules which require sonographic follow up, per consensus guidelines. Stable subcentimeter hypodense nodule in the left thyroid lobe. The Axillae: No enlarged lymph nodes. Chest Wall: Unremarkable. Bones: No acute fractures. No aggressive appearing lytic or blastic osseous lesions. Lungs and Pleura: No pneumothorax or pleural effusions. Compared to CT chest dated June 16, 2023, slightly decreased size of left lower lobe consolidative nodule measuring 1.6 x 1.2 cm (3/230), previously 2.2 x 1.4 cm on June 26, 2023 and remotely 2.4 x 1.4 cm on June 16, 2023. No new or enlarging solid pulmonary nodules or consolidation. Heart: Heart size is normal. No pericardial effusion. No coronary vessel calcifications. Thoracic Vessels: The aorta and pulmonary arteries demonstrate normal size. No filling defects in the central pulmonary vasculature. Mediastinum and Blanca: No enlarged lymph nodes by size criteria. Left hilar lymph node has decreased in size measuring 1.2 x 0.5 cm, previously 1.2 cm. Subcarinal lymph node has decreased in size measuring 1.4 x 1.2 cm (2/22), previously 2.3 cm. Esophagus: No wall thickening. No hiatal hernia. Upper Abdomen: Limited views of the upper abdomen demonstrate multiple prominent, but not enlarged, upper abdominal lymph nodes. For example, perigastric lymph node measures 0.9 cm in short axis (2/49), stable. Pericaval lymph node measures 0.8 cm in short axis (2/52), stable. Cholecystectomy. IMPRESSION: 1. Compared to CT chest dated June 16, 2023, slightly decreased size of left lower lobe consolidative nodule measuring 1.6 x 1.2 cm, previously 2.2 x 1.4 cm. No new nodules. 2. Left hilar and subcarinal lymphadenopathy has decreased. 3. Subdiaphragmatic prominent, but not enlarged, lymph nodes, stable. Dictated by: Brenton Peña M.D. on 10/04/2023 at 8:31 Approved by: Brenton Peña M.D. on 10/04/2023 at 9:36
--- NOTE | 2023-10-04 06:53 | DI.MG.S_ITS ---
BILATERAL DIGITAL SCREENING MAMMOGRAM 3D/2D WITH CAD: 10/04/2023 CLINICAL: Routine screening. Family history of breast cancer. Comparison is made to exams dated: 10/01/2022 mammogram, 09/15/2021 mammogram, and 07/16/2020 mammogram - [facility]. There are scattered areas of fibroglandular density in both breasts (category b / 25%-50% glandular tissue). Current study was also evaluated with a Computer Aided Detection (CAD) system. No significant masses, calcifications, or other findings are seen in either breast. There has been no significant interval change. IMPRESSION: NEGATIVE There is no mammographic evidence of malignancy. A 1 year screening mammogram is recommended. Based on the Tyrer Cuzick model (a risk assessment model) the patient's lifetime risk is 13.4% and her 10 year risk is 3.7%. According to the ACR, ACS, and NCCN guidelines, an annual breast MRI exam along with mammogram is recommended if the patient's lifetime risk is 20% or greater. This exam was interpreted at Station ID: [id number]. NOTE: For mammograms, a report in lay terms will be sent to the patient. Approximately 15% of breast malignancies will not be visualized mammographically. In the management of a palpable breast mass, a negative mammogram must not discourage biopsy of a clinically suspicious lesion. Electronically Signed By: Rubio meade/alexandria:10/04/2023 08:56:55 letter sent: Normal Exam ACR BI-RADS Category 1: Negative [id number]
== END ==
PROVIDERS: PCP Family Medicine; Referring Provider Internal Medicine; Visit Provider Internal Medicine
DX: Z12.31 Encounter for screening mammogram for malignant neoplasm of breast (principal); Z80.3 Family history of malignant neoplasm of breast; R92.323 Mammographic fibroglandular density, bilateral breasts; D86.0 Sarcoidosis of lung; R59.0 Localized enlarged lymph nodes; J98.4 Other disorders of lung; R91.1 Solitary pulmonary nodule
CPT/HCPCS: 71260; 77063; 77067; Q9967

== ENCOUNTER → 2024-03-10 07:42 | Outpatient (CLI) | payer OTHER, SELFPAY ==
[2024-03-10 08:58] LABS: Add Manual Diff / Slide Review NO; Basophils Absolute Auto 0 /uL (0-100); Basophils Percent Auto 0.8 % (0-2); Eosinophils Absolute Auto 100 /uL (0-450); Eosinophils Percent Auto 2.1 % (2-4); Hematocrit 37.6 % (36-46); Hemoglobin 12.7 g/dL (12.0-16.0); Lymphocytes Absolute Auto 1200 /uL (1100-4500); Lymphocytes Percent Auto 26.5 % (25-40); Mean Corpuscular HGB Conc 33.7 % (30-36); Mean Corpuscular Volume 86.1 fL (80-100); Monocytes Absolute Auto 400 /uL (0-900); Monocytes Percent Auto 7.8 % (3-14); Neutrophils Absolute Auto 2900 /uL (1500-7000); Neutrophils Percent Auto 62.8 % (50-75); Platelet Count 175 X10^3/uL (150-400); Red Blood Cell Count 4.37 X10^6/uL (4.0-5.2); Red Cell Distribution Width 13.6 % (11.6-14.8); White Blood Cell Count 4.6 X10^3/uL (4.5-11.0)
[2024-03-10 09:30] LABS: Alanine Aminotransferase 40 IU/L (<35); Albumin 4.1 g/dL (3.5-5.0); Albumin Globulin Ratio 1.2 (1.0-2.8); Alkaline Phosphatase 181 U/L (38-126); Aspartate Aminotransferase 39 IU/L (14-36); BUN Creatinine Ratio 19.7 (6-22); Bilirubin Total 0.7 mg/dL (0.2-1.3); Blood Urea Nitrogen 14 mg/dL (7-17); Calcium 9.2 mg/dL (8.4-10.2); Carbon Dioxide 25 mmol/L (22-32); Chloride 108 mmol/L (98-107); Estimated Glomerular Filt Rate > 60 mL/min (>60); Globulin 3.3 g/dL (1.7-4.1); Glucose 83 mg/dL (70-100); HEMOLYSIS < 15 (0-50); Potassium 4.1 mmol/L (3.4-5.1); Sodium 140 mmol/L (137-145); Total Protein 7.4 g/dL (6.3-8.2)
== END ==
LOC: LAB 07:44
PROVIDERS: PCP Family Medicine; Referring Provider Internal Medicine Gastroenterology; Visit Provider Internal Medicine Gastroenterology
DX: K74.3 Primary biliary cirrhosis (principal)
CPT/HCPCS: 36415; 80053; 85025

== ENCOUNTER → 2024-09-22 | Outpatient (CLI) | payer OTHER, SELFPAY ==
--- NOTE | 2024-09-22 15:31 | DI.CT.S_ITS ---
PROCEDURE: CT ABDOMEN LIVER PROTOCOL INDICATIONS: HCC r/o, assess pancreatic cyst TECHNIQUE: 4 phase scanning was performed. Non-contrast 5 mm axial sections acquired from the diaphragm to the iliac crests. Following the administration of intravenous contrast, 5 mm thick arterial-phase, portal venous-phase, and 5-minute delayed phase images were acquired through the liver. 5 mm thick coronal and sagittal reformats were performed. For radiation dose reduction, the following was used: automated exposure control, adjustment of mA and/or kV according to patient size. COMPARISON: [facility], CT, CT ABDOMEN LIVER PROTOCOL, 04/12/2023, 12:39. FINDINGS: Image quality: Excellent. Lower chest: Prominent cardiophrenic lymph nodes. ABDOMEN: Liver: No solid mass. Normal enhancement. Patent portal vein. Cirrhotic liver morphology. No observations of probably or definitely HCC. Gallbladder: Absent. Biliary ducts: No biliary dilation. Pancreas: No ductal dilation. No cystic mass identified. Spleen: Enlarged. Adrenal Glands: No adrenal nodules. Kidneys and Ureters: No hydronephrosis. No solid mass. No complex renal cystic lesion which requires follow up. Stomach and Bowel: Normal colonic caliber, without significant wall thickening. Peritoneum: No abnormal intraperitoneal fluid. No free air. Ventral Wall: No hernia. Abdominal Nodes: Enlarged gastrohepatic and periportal lymph nodes, without significant progression from prior. Vessels: Aorta and inferior vena cava are normal in size. PELVIS: Pelvic Organs: Unremarkable. Bladder: Unremarkable. Pelvic Nodes: No enlarged lymph nodes. Miscellaneous: No inguinal hernias are seen. Bones: No aggressive osseous abnormality. IMPRESSION: No pancreatic cystic mass identified. Cirrhotic liver morphology with secondary evidence of portal hypertension. No observations of probably or definitely HCC. Prominent cardiophrenic and periportal lymph nodes, nonspecific. A process of lymphoma is a consideration but these also could be reactive to the presence of cirrhosis. Dictated by: Irwin Oliver M.D. on 09/25/2024 at 8:21 Approved by: Irwin Oliver M.D. on 09/25/2024 at 8:31
[2024-09-22 17:20] LABS: Add Manual Diff / Slide Review NO; Basophils Absolute Auto 0 /uL (0-100); Basophils Percent Auto 0.9 % (0-2); Eosinophils Absolute Auto 100 /uL (0-450); Eosinophils Percent Auto 1.7 % (2-4); Hematocrit 40.3 % (36-46); Hemoglobin 13.4 g/dL (12.0-16.0); Lymphocytes Absolute Auto 1500 /uL (1100-4500); Lymphocytes Percent Auto 26.6 % (25-40); Mean Corpuscular HGB Conc 33.3 % (30-36); Mean Corpuscular Hemoglobin 28.9 PG (26-34); Mean Corpuscular Volume 86.8 fL (80-100); Monocytes Absolute Auto 400 /uL (0-900); Monocytes Percent Auto 6.8 % (3-14); Neutrophils Absolute Auto 3600 /uL (1500-7000); Platelet Count 222 X10^3/uL (150-400); Red Blood Cell Count 4.64 X10^6/uL (4.0-5.2); Red Cell Distribution Width 13.3 % (11.6-14.8); White Blood Cell Count 5.6 X10^3/uL (4.5-11.0)
[2024-09-22 18:08] LABS: INR 1.1 (0.9-1.3); Prothrombin Time 12.2 SECONDS (9.4-12.5)
[2024-09-22 18:29] LABS: Alanine Aminotransferase 43 IU/L (<35); Albumin 4.5 g/dL (3.5-5.0); Albumin Globulin Ratio 1.1 (1.0-2.8); Alkaline Phosphatase 167 U/L (38-126); Aspartate Aminotransferase 45 IU/L (14-36); BUN Creatinine Ratio 17.1 (6-22); Bilirubin Direct 0.4 mg/dL (0.0-0.4); Bilirubin Total 0.5 mg/dL (0.2-1.3); Blood Urea Nitrogen 12 mg/dL (7-17); Calcium 9.4 mg/dL (8.4-10.2); Carbon Dioxide 28 mmol/L (22-32); Chloride 105 mmol/L (98-107); Cholesterol 204 mg/dL (140-199); Estimated Glomerular Filt Rate > 60 mL/min (>60); Glucose 94 mg/dL (70-100); HDL Cholesterol 89 mg/dL (40-60); HEMOLYSIS < 15 (0-50); LDL Cholesterol Calculated 76 mg/dL (<100); Potassium 3.6 mmol/L (3.4-5.1); Sodium 141 mmol/L (137-145); Total Protein 8.5 g/dL (6.3-8.2); Triglycerides 193 mg/dL (35-150)
[2024-09-22 18:45] LABS: Vitamin D 25 Hydroxy (D3) 16.9 ng/mL (30.0-100.0)
[2024-09-22 18:57] LABS: Thyroid Stimulating Hormone 2.41 uIU/mL (0.47-4.68)
[2024-09-24 08:07] LABS: Alpha Fetoprotein 2.7 ng/mL (0.0-9.2)
== END ==
LOC: CT 15:22
PROVIDERS: PCP Family Medicine; Referring Provider Internal Medicine Gastroenterology; Visit Provider Internal Medicine Gastroenterology
DX: K74.3 Primary biliary cirrhosis (principal); K76.6 Portal hypertension; R59.0 Localized enlarged lymph nodes; D86.0 Sarcoidosis of lung; K86.2 Cyst of pancreas; K74.60 Unspecified cirrhosis of liver; R79.89 Other specified abnormal findings of blood chemistry
CPT/HCPCS: 36415; 74170; 80053; 80061; 82105; 82248; 82306; 84443; 85025; 85610; Q9967

== ENCOUNTER → 2024-10-19 16:51 | Outpatient (CLI) | payer OTHER, SELFPAY ==
--- NOTE | 2024-10-19 16:53 | DI.MG.S_ITS ---
BILATERAL DIGITAL SCREENING MAMMOGRAM 3D/2D WITH CAD: 10/19/2024 CLINICAL: Routine screening. Family history of breast cancer. Comparison is made to exams dated: 10/04/2023 mammogram, 10/01/2022 mammogram, 09/15/2021 mammogram, 07/16/2020 mammogram, and 06/21/2019 mammogram - [facility]. There are scattered areas of fibroglandular density (category b / 25%-50% glandular tissue). Current study was also evaluated with a Computer Aided Detection (CAD) system. No significant masses, calcifications, or other findings are seen in either breast. There has been no significant interval change. IMPRESSION: NEGATIVE There is no mammographic evidence of malignancy. A 1 year screening mammogram is recommended. Based on the Tyrer Cuzick model (a risk assessment model) the patient's lifetime risk is 13.2% and her 10 year risk is 3.8%. According to the ACR, ACS, and NCCN guidelines, an annual breast MRI exam along with mammogram is recommended if the patient's lifetime risk is 20% or greater. This exam was interpreted at Station ID: [id number]. NOTE: For mammograms, a report in lay terms will be sent to the patient. Approximately 15% of breast malignancies will not be visualized mammographically. In the management of a palpable breast mass, a negative mammogram must not discourage biopsy of a clinically suspicious lesion. Electronically Signed By: Paulo heredia/alexandria:10/20/2024 11:45:25 letter sent: Normal Exam ACR BI-RADS Category 1: Negative
== END ==
PROVIDERS: PCP Family Medicine; Referring Provider Family Medicine; Visit Provider Family Medicine
DX: Z12.31 Encounter for screening mammogram for malignant neoplasm of breast (principal); Z80.3 Family history of malignant neoplasm of breast
CPT/HCPCS: 77063; 77067

== ENCOUNTER → 2024-12-07 16:16 | Outpatient (CLI) | payer OTHER, SELFPAY ==
--- NOTE | 2024-12-07 16:18 | DI.RAD.S_ITS ---
PROCEDURE: XR CHEST 2V INDICATIONS: new orthopnea TECHNIQUE: 2 views of the chest were acquired. COMPARISON: [facility], CR, XR CHEST 2V, 06/08/2023, 8:26. FINDINGS: Surgical changes and devices: None. Lungs and pleura: Lungs are clear. No pleural effusions or pneumothorax. Mediastinum: Mediastinal contours are normal. Heart size is normal. Bones and chest wall: No suspicious bony abnormalities. Soft tissues appear unremarkable. IMPRESSION: No acute cardiopulmonary abnormality is seen. Dictated by: Fabian Villa M.D. on 12/08/2024 at 1:03 Approved by: Fabian Villa M.D. on 12/08/2024 at 1:03
== END ==
PROVIDERS: PCP Family Medicine; Referring Provider Family Medicine; Visit Provider Family Medicine
DX: D86.0 Sarcoidosis of lung (principal)
CPT/HCPCS: 71046

== ENCOUNTER 2024-12-18 13:25 | Emergency (ER) | payer OTHER, SELFPAY ==
[2024-12-18] VITALS (13 sets, daily range): BP systolic 130–193; BP diastolic 63–98; PULSE 68–105; RESP 12–19; TEMP 36.9; O2SAT 96–100; BMI 36.6
--- NOTE | 2024-12-18 13:33 | DI.RAD.S_ITS ---
PROCEDURE: XR CHEST 1V INDICATIONS: chest pain TECHNIQUE: One view of the chest was acquired. COMPARISON: [facility], CR, XR CHEST 2V, 12/07/2024, 15:42. FINDINGS: Surgical changes and devices: None. Lungs and pleura: Lungs are clear. No pleural effusions or pneumothorax. Mediastinum: Mediastinal contours appear normal. Heart size is normal. Bones and chest wall: No suspicious bony lesions. Overlying soft tissues appear unremarkable. IMPRESSION: No acute cardiopulmonary abnormality is seen. Approved by: Stephen Roche M.D. on 12/18/2024 at 14:46
--- NOTE | 2024-12-18 13:43 | EKG_ITS ---
[place] [id number] [place] [id number] Test Date: 2024-12-18 Pat Name: Susan Kelly Department: Room: Gender: Female Paver Operator: SHAHID : 1970 Requested By: Order Number: [id number] Reading MD: Larry Munroe Measurements Intervals [place] Rate: 93 P: 41 AR: 146 QRS: -8 QRSD: 80 T: 24 QT: 394 QTc: 489 Interpretive Statements Sinus rhythm with occasional premature ventricular complexes Cannot rule out Anterior infarct , age undetermined Electronically Signed On 12-20-2024 17:38:40 PDT by Larry Munroe
--- NOTE | 2024-12-18 13:53 | PC.NURSE ---
Pt lying back in gurney. Appears in NAD. Denies chest pain. Discussed plan of care,understands.
[2024-12-18 14:06] LABS: Add Manual Diff / Slide Review NO; Basophils Absolute Auto 0 /uL (0-100); Basophils Percent Auto 0.6 % (0-2); Eosinophils Absolute Auto 100 /uL (0-450); Eosinophils Percent Auto 1.4 % (2-4); Hematocrit 39.8 % (36-46); Hemoglobin 13.4 g/dL (12.0-16.0); Lymphocytes Absolute Auto 1700 /uL (1100-4500); Lymphocytes Percent Auto 25.8 % (25-40); Mean Corpuscular HGB Conc 33.6 % (30-36); Mean Corpuscular Hemoglobin 28.8 PG (26-34); Mean Corpuscular Volume 85.5 fL (80-100); Monocytes Absolute Auto 400 /uL (0-900); Monocytes Percent Auto 5.9 % (3-14); Neutrophils Absolute Auto 4300 /uL (1500-7000); Neutrophils Percent Auto 66.3 % (50-75); Platelet Count 195 X10^3/uL (150-400); Red Blood Cell Count 4.65 X10^6/uL (4.0-5.2); Red Cell Distribution Width 13.2 % (11.6-14.8); White Blood Cell Count 6.5 X10^3/uL (4.5-11.0)
[2024-12-18 14:07] LABS: Prothrombin Time 10.9 SECONDS (9.4-12.5)
[2024-12-18 14:10] LABS: PTT Partial Thromboplastin Tim 35 SECONDS (25.1-36.5)
[2024-12-18 14:12] LABS: Alanine Aminotransferase 54 IU/L (<35); Albumin 4.5 g/dL (3.5-5.0); Albumin Globulin Ratio 1.2 (1.0-2.8); Alkaline Phosphatase 195 U/L (38-126); Aspartate Aminotransferase 45 IU/L (14-36); BUN Creatinine Ratio 12.9 (6-22); Bilirubin Total 0.7 mg/dL (0.2-1.3); Blood Urea Nitrogen 8 mg/dL (7-17); Calcium 9.6 mg/dL (8.4-10.2); Carbon Dioxide 25 mmol/L (22-32); Chloride 105 mmol/L (98-107); Creatine Kinase 33 U/L (30-135); Estimated Glomerular Filt Rate > 60 mL/min (>60); Globulin 3.9 g/dL (1.7-4.1); Glucose 94 mg/dL (70-99); HEMOLYSIS < 15 (0-50); Lipase 113 U/L (23-300); Magnesium 1.6 mg/dL (1.6-2.3); Potassium 3.3 mmol/L (3.4-5.1); Sodium 140 mmol/L (137-145); Total Protein 8.4 g/dL (6.3-8.2)
[2024-12-18 14:23] LABS: NT-proBNP (BNP-Adult 18+) 279 pg/mL (<125); Troponin I < 0.012 ng/mL (0.01-0.034)
--- NOTE | 2024-12-18 15:16 | EKG_ITS ---
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
--- NOTE | 2024-12-18 15:41 | ED.ARRPALP ---
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 She reports that she was having chest discomfort which according to primary care notes she has been having for couple weeks. He now is having some shortness of breath and a random cough. Chest fluttering and pain is not always constant not reproducible. She is on a steroid inhaler to help with her sarcoid but she says it makes her feel brain fog. She has in general just isn't feeling great. But was recently started on the steroid inhaler and vitamin-D replacement therapy. Some of the symptoms are her general symptoms which she has been feeling for awhile but it does seem to be getting a little bit worse. She tried to go to the walk-in clinic and was ultimately sent here to the ED for further evaluation. She overall appears well Related Data Home Medications Medication Instructions Recorded Confirmed multivitamin 1 tab PO DAILY 12/22/18 12/18/24 hydroxychloroquine 100 mg tablet 100 mg PO BID 06/10/23 12/18/24 ursodiol 250 mg tablet See Rx Instructions PO BID 09/01/23 12/18/24 Previous Rx's Medication Instructions Recorded lidocaine 5 % topical patch 1 patch topical DAILY #15 ea 11/11/23 fluticasone propionate 115 2 puff inhalation BID shortness of 12/07/24 mcg-salmeterol 21 mcg/actuation breath #12 grams HFA inhaler (Advair HFA) prednisone 20 mg tablet 20 mg PO DAILY #5 tabs 12/18/24 Allergies Allergy/AdvReac Type Severity Reaction Status Date / Time soy [SOY] AdvReac Mild ABDOMINAL Verified 12/18/24 08:23 PAIN, NAUSEA Patient History Medical History (Updated 12/18/24 @ 17:11 by Rosalie Ewing DO) Mastodynia (11/10/05) Lump or mass in breast (11/10/05) Irritable bowel syndrome (08/31/05) Osteopenia (~08/2017) HPV in female (2011) Migraines (Unknown) Surgical History Status post biopsy Status post delivery Family History Grandfather Colorectal cancer Mother Diabetes mellitus Thyroid disease Hypertension Grandfather Stroke Colorectal cancer Grandmother Diabetes mellitus Pancreatic cancer Colitis Social History Smoking Status: Never smoker second hand exposure: No alcohol intake: former (Stopped due to liver issues 2019 ) substance use type: does not use Smoking Status: Never smoker Exam Initial Vital Signs Initial Vital Signs: Vital Signs Pulse Rate 105 H 12/18/24 13:36 Pulse Oximetry 97 12/18/24 13:36 GENERAL: Alert pleasant 54-year-old female and in no acute distress. HEENT: Head atraumatic,EOMI, pupils reactive, face symmetric, moist mucous membranes CARDIOVASCULAR: Regular rate and rhythm without murmurs, rubs or gallops. RESPIRATORY: Slightly shallow breaths no real wheezing but does have cough with deep breathing ABDOMEN: Soft, nontender. Normoactive bowel sounds all 4 quadrants. No guarding or rebound. EXTREMITIES: Normal range of motion, no clubbing or edema. Neurovascularly intact NEUROLOGICAL: Alert and oriented x4.Normal gait and speech. Cranial nerves II through XII grossly intact. SKIN: Warm, dry, no laceration, no petechiae, no rashes or lesions. Course Orders Ordered: ED Orders 12/18/24 13:33 XR chest 1V Stat EKG-12 Lead Stat 12/18/24 13:45 Complete Blood Count AUTO DIFF Stat Comprehensive Metabolic Panel Stat Lipase Stat Magnesium Stat NT-proBNP (BNP-Adult 18+) Stat PTT Partial Thromboplastin Jonathon Stat Prothrombin Time INR Stat Troponin & CK Cardiac Panel Stat 12/18/24 15:17 Troponin I Stat 12/18/24 15:45 EKG-12 Lead Stat 12/18/24 16:00 CT angio chest PE protocol Stat Discontinued Medications Albuterol (Albuterol 2.5 Mg/3 Ml Neb (Adult)) 2.5 mg INH NOW ONE Stop: 12/18/24 16:01 Last Admin: 12/18/24 16:11 Dose: 2.5 mg Documented By: KATYA Aspirin (Aspirin 81 Mg Chew Tab) 324 mg PO NOW ONE Stop: 12/18/24 13:34 Last Admin: 12/18/24 16:50 Dose: Not Given Documented By: Vital Signs Vital signs: Vital Signs - 8 hr 12/18/24 13:36 12/18/24 13:37 12/18/24 13:37 Temperature Pulse Rate 105 H 92 H Respiratory Rate Blood Pressure 193/98 H Pulse Oximetry 97 99 Oxygen Delivery Method Room Air Oxygen Flow Rate Fraction of Inspired Oxygen 12/18/24 13:41 12/18/24 14:00 12/18/24 14:01 Temperature 98.4 F Pulse Rate 92 H 74 76 Respiratory Rate 18 12 12 Blood Pressure 193/98 H Pulse Oximetry 98 99 99 Oxygen Delivery Method Room Air Oxygen Flow Rate Fraction of Inspired Oxygen 12/18/24 14:01 12/18/24 14:30 12/18/24 14:30 Temperature Pulse Rate 76 Respiratory Rate 14 Blood Pressure 142/74 H 136/63 Pulse Oximetry 96 Oxygen Delivery Method Oxygen Flow Rate Fraction of Inspired Oxygen 12/18/24 15:00 12/18/24 15:00 12/18/24 15:49 Temperature Pulse Rate 70 82 Respiratory Rate 12 13 Blood Pressure 130/64 Pulse Oximetry 98 Oxygen Delivery Method Oxygen Flow Rate Fraction of Inspired Oxygen 12/18/24 16:00 12/18/24 16:12 12/18/24 16:30 Temperature Pulse Rate 73 76 80 Respiratory Rate 12 18 12 Blood Pressure Pulse Oximetry 100 99 97 Oxygen Delivery Method Room Air Oxygen Flow Rate 0 Fraction of Inspired Oxygen 21 12/18/24 17:00 12/18/24 17:37 Temperature 98.4 F Pulse Rate 79 68 Respiratory Rate 13 19 Blood Pressure 130/89 Pulse Oximetry 98 98 Oxygen Delivery Method Room Air Oxygen Flow Rate Fraction of Inspired Oxygen MDM - Arrhythmia/Palpitations Lab Data 12/18/24 13:45 12/18/24 13:45 Labs: Lab Results 12/18/24 12/18/24 Range/Units 13:45 15:17 WBC 6.5 (4.5-11.0) X10^3/uL RBC 4.65 (4.0-5.2) X10^6/uL Hgb 13.4 (12.0-16.0) g/dL Hct 39.8 (36-46) % MCV 85.5 (80-100) fL MCH 28.8 (26-34) PG MCHC 33.6 (30-36) % RDW 13.2 (11.6-14.8) % Plt Count 195 (150-400) X10^3/uL Neut % (Auto) 66.3 (50-75) % Lymph % (Auto) 25.8 (25-40) % H[place]eth % (Auto) 5.9 (3-14) % Eos % (Auto) 1.4 L (2-4) % Baso % (Auto) 0.6 (0-2) % Neut # (Auto) 4300 (0451-1067) /uL Lymph # (Auto) 1700 (9130-7744) /uL [place] # (Auto) 400 (0-900) /uL Eos # (Auto) 100 (0-450) /uL Baso # (Auto) 0 (0-100) /uL PT 10.9 (9.4-12.5) SECONDS INR 1.0 (0.9-1.3) APTT 35 (25.1-36.5) SECONDS Sodium 140 (137-145) mmol/L Potassium 3.3 L (3.4-5.1) mmol/L Chloride 105 (98-107) mmol/L Carbon Dioxide 25 (22-32) mmol/L BUN 8 (7-17) mg/dL Creatinine 0.62 (0.52-1.04) mg/dL Estimated GFR > 60 (>60) mL/min BUN/Creatinine Ratio 12.9 (6-22) Glucose 94 (70-99) mg/dL Calcium 9.6 (8.4-10.2) mg/dL Magnesium 1.6 (1.6-2.3) mg/dL Total Bilirubin 0.7 (0.2-1.3) mg/dL AST 45 H (14-36) IU/L ALT 54 H (<35) IU/L Alkaline Phosphatase 195 H (38-126) U/L Total Creatine Kinase 33 (30-135) U/L Troponin I < 0.012 < 0.012 (0.01-0.034) ng/mL NT-Pro-B Natriuret Pep 279 H (<125) pg/mL Total Protein 8.4 H (6.3-8.2) g/dL Albumin 4.5 (3.5-5.0) g/dL Globulin 3.9 (1.7-4.1) g/dL Albumin/Globulin Ratio 1.2 (1.0-2.8) Lipase 113 (23-300) U/L Imaging Data Chest x-ray: Radiologist's Impresson: PROCEDURE: XR CHEST 1V INDICATIONS: chest pain TECHNIQUE: One view of the chest was acquired. COMPARISON: [facility], CR, XR CHEST 2V, 12/07/2024, 15:42. FINDINGS: Surgical changes and devices: None. Lungs and pleura: Lungs are clear. No pleural effusions or pneumothorax. Mediastinum: Mediastinal contours appear normal. Heart size is normal. Bones and chest wall: No suspicious bony lesions. Overlying soft tissues appear unremarkable. IMPRESSION: No acute cardiopulmonary abnormality is seen. Approved by: Stephen Roche M.D. on 12/18/2024 at 14:46 CT scan - chest: Radiologist's Impresson: PROCEDURE: CT ANGIO CHEST PE PROTOCOL INDICATIONS: sarcoid chest pain short of breath TECHNIQUE: After the administration of intravenous contrast, 2 mm thick sections acquired from the pulmonary apices to the posterior costophrenic angles. 3-dimensional maximum intensity projection (MIP) coronal and sagittal reformats were then acquired through the thorax. For radiation dose reduction, the following was used: automated exposure control, adjustment of mA and/or kV according to patient size. COMPARISON: [facility], CT, CT CHEST W CON, 10/04/2023, 7:03. [facility], CT, CT ABDOMEN LIVER PROTOCOL, 09/22/2024, 15:43. FINDINGS: Image quality: Diagnostic. Pulmonary arteries: Pulmonary arteries are normal in size, and demonstrate no intraluminal filling defects to suggest central pulmonary embolism. Lower Neck: No enlarged lymph nodes. Thyroid: No thyroid nodules which require sonographic follow up, per consensus guidelines. Axillae: No enlarged lymph nodes. Chest Wall: Unremarkable. Bones: Unremarkable. Lungs and Pleura: No pneumothorax or pleural effusions. Subpleural nodules at the lower left lung base have decreased in size compared to the CT from 10/04/2023. No suspicious new or enlarging pulmonary nodule. No consolidation or suspicious nodules. Heart: Heart size is normal. No pericardial effusion. Thoracic Vessels: No aortic aneurysm. Mediastinum and Blanca: Small pericardiophrenic lymph nodes are unchanged. No upper mediastinal lymphadenopathy. Esophagus: No wall thickening. No hiatal hernia. Upper Abdomen: Nodular liver surface is consistent with cirrhosis. Status post hysterectomy. Prominent lymph nodes are seen in the terri hepatis region. Nonobstructing left renal calculi. Mild prominence of the left renal pelvis similar to the prior exam. IMPRESSION: 1. No acute pulmonary embolus. No acute abnormality is seen in the chest. 2. Hepatic cirrhosis. 3. Nonspecific cardiophrenic and periportal lymph nodes similar to the CT from 09/22/2024. Approved by: Stephen Roche M.D. on 12/18/2024 at 16:41 ECG Data Attestation: I personally reviewed and interpreted this ECG as follows: Prior ECG tracings: available for review Interpretation: Normal sinus rhythm rate 93 VT interval 146 QRS 80 QTC 49 no priors to compare no ischemic change Repeat EKGs sinus rhythm with PVC rate 71 MDM Narrative Medical decision making narrative: Patient 54-year-old female presenting today with cough chest pain shortness of breath. She does have a history of sarcoidosis followed by pulmonology along with PVC. She overall appears well nontoxic has no difficulty breathing lung sounds are clear but have kind of a reactive cough. Blood work has been reviewed WBC shows no leukocytosis 6.5 hemoglobin 30.4 hematocrit 39.8 with platelets 195 CMP shows mild hypokalemia with a potassium of 3.3 no other electrolyte abnormality or LINETTE Troponin negative x2, BNP 279 Slightly elevated AST of 45 ALT 54 alk-phos 195, bilirubin 0.7 lipase would 13 Imaging reviewed chest x-ray no acute cardiopulmonary CT angio no pulmonary embolus nonspecific cardiophrenic and periportal lymph nodes similar to CT from 09/22/2024 Patient today was shortness of breath some cough some intermittent chest discomfort. Her vitals are stable blood work is overall reassuring. It maybe related to sarcoidosis versus something else. Her chest x-ray is clear. However to fully evaluate for her lymph nodes we discussed CT which he was agreeable to. CT does not show significant change in lymph nodes. We discussed some oral prednisone to see if it helps her symptoms at all. At this time no coli for chest discomfort or symptoms to be related to cardiac I think more likely related to her sarcoidosis. Discharge Plan Departure Patient Disposition: Home Clinical Impression: Sarcoidosis of lung, Atypical chest pain Instructions: Sarcoidosis, DI for Atypical Chest Pain Activity Restrictions/Additional Instructions: *You have been diagnosed with atypical chest pain sarcoidosis *What to do: Increase activity as tolerated *Continue to take medications as directed Prednisone 20 mg once a day for 5 days *Follow up with your primary care provider in 2-3 days or call [phone] *Return to ER if you should have increasing chest pain shortness of breath weakness [or] any new, worsening or concerning symptoms Prescriptions: New prednisone 20 mg tablet 20 mg PO DAILY Qty: 5 0RF No Action hydroxychloroquine 100 mg tablet 100 mg PO BID lidocaine 5 % adhesive patch,medicated 1 patch topical DAILY Qty: 15 0RF Rx Instructions: leave on most painful area for up to 12 hrs multivitamin tablet 1 tab PO DAILY ursodiol 250 mg tablet See Rx Instructions PO BID Rx Instructions: 3 caps QAM and 2 QPM orally twice a day; fluticasone propion-salmeterol [Advair HFA] 115-21 mcg/actuation HFA aerosol inhaler 2 puff inhalation BID Qty: 12 2RF Referrals: Crystal Maravilla DO [Primary Care Provider] - Stand Alone Forms: Patient Portal/API/Survey
[2024-12-18 15:57] LABS: Troponin I < 0.012 ng/mL (0.01-0.034)
--- NOTE | 2024-12-18 16:00 | DI.CT.S_ITS ---
PROCEDURE: CT ANGIO CHEST PE PROTOCOL INDICATIONS: sarcoid chest pain short of breath TECHNIQUE: After the administration of intravenous contrast, 2 mm thick sections acquired from the pulmonary apices to the posterior costophrenic angles. 3-dimensional maximum intensity projection (MIP) coronal and sagittal reformats were then acquired through the thorax. For radiation dose reduction, the following was used: automated exposure control, adjustment of mA and/or kV according to patient size. COMPARISON: [facility], CT, CT CHEST W CON, 10/04/2023, 7:03. [facility], CT, CT ABDOMEN LIVER PROTOCOL, 09/22/2024, 15:43. FINDINGS: Image quality: Diagnostic. Pulmonary arteries: Pulmonary arteries are normal in size, and demonstrate no intraluminal filling defects to suggest central pulmonary embolism. Lower Neck: No enlarged lymph nodes. Thyroid: No thyroid nodules which require sonographic follow up, per consensus guidelines. Axillae: No enlarged lymph nodes. Chest Wall: Unremarkable. Bones: Unremarkable. Lungs and Pleura: No pneumothorax or pleural effusions. Subpleural nodules at the lower left lung base have decreased in size compared to the CT from 10/04/2023. No suspicious new or enlarging pulmonary nodule. No consolidation or suspicious nodules. Heart: Heart size is normal. No pericardial effusion. Thoracic Vessels: No aortic aneurysm. Mediastinum and Blanca: Small pericardiophrenic lymph nodes are unchanged. No upper mediastinal lymphadenopathy. Esophagus: No wall thickening. No hiatal hernia. Upper Abdomen: Nodular liver surface is consistent with cirrhosis. Status post hysterectomy. Prominent lymph nodes are seen in the terri hepatis region. Nonobstructing left renal calculi. Mild prominence of the left renal pelvis similar to the prior exam. IMPRESSION: 1. No acute pulmonary embolus. No acute abnormality is seen in the chest. 2. Hepatic cirrhosis. 3. Nonspecific cardiophrenic and periportal lymph nodes similar to the CT from 09/22/2024. Approved by: Stephen Roche M.D. on 12/18/2024 at 16:41
[2024-12-18] MEDS: ALBUTEROL 2.5 MG/3 ML NEB (ADULT) INH (16:11)
== END 2024-12-18 17:37 | disposition home or self-care (01) ==
PROVIDERS: Emergency Provider Emergency Medicine; PCP Family Medicine
DX: D86.0 Sarcoidosis of lung (principal); R07.89 Other chest pain; R06.02 Shortness of breath; R00.2 Palpitations
CPT/HCPCS: 36415; 71045; 71275; 80053; 82550; 83690; 83735; 83880; 84484; 85025; 85610; 85730; 93005; 94640; 99284; J7613; Q9967

== ENCOUNTER → 2025-01-02 15:06 | Outpatient (CLI) | payer OTHER, SELFPAY ==
--- NOTE | 2025-01-02 15:09 | DI.RAD.S_ITS ---
PROCEDURE: XR DEXA AXIAL W/VFA INDICATIONS: interval recheck COMPARISON: None. FINDINGS: Lumbar Spine: Bone mineral density 0.806 g/cm2, T score -2.2. Left Femoral Neck: Bone mineral density 0.609 g/cm2, T score -2.2. Left Hip: Bone mineral density 0.765 g/cm2, T score -1.4. Fracture Risk Calculation (when applicable): 10-year fracture risk of a major osteoporotic fracture 9.6 percent and of a hip fracture 1.3 percent. (T score greater or equal to -1.0 to: NORMAL) (T score from -1.1 to -2.4: OSTEOPENIA) (T score less than or equal to -2.5: OSTEOPOROSIS) IMPRESSION: Osteopenia--- recommend DEXA in 2-3 years for reassessment. Follow-up guidelines as follows: Osteoporosis: Consider a repeat DEXA and Vertebral Fracture Assessment (VFA) exam in 2 years or sooner if medically necessary, to reassess this patient's status. Osteopenia: Consider a repeat DEXA in 2-3 years to reassess this patient's status, or if there is a new clinical indication. Normal: Consider a repeat DEXA in 5 years or sooner, or if there is a new clinical indication. All treatment decisions require clinical judgment and consideration of individual patient factors, including patient preferences, comorbidities, previous drug use, risk factors not captured in the FRAX model (e.g., frailty, falls, vitamin D deficiency, increased bone turnover, interval significant decline in bone density ) and possible under- or over-estimation of fracture risk by FRAX. In addition, the NOF Guide recommends that FDA-approved medical therapies be considered in postmenopausal women and men age >= 50 years with a: * Hip or vertebral (clinical or morphometric) fracture * T-score of <=-2.5 at the spine or hip * Ten-year fracture probability by FRAX of >= 3% for hip fracture or >=20% for major osteoporotic fracture. Dictated by: Fabian Villa M.D. on 01/03/2025 at 21:34 Approved by: Fabian Villa M.D. on 01/03/2025 at 21:36
--- NOTE | 2025-01-02 15:09 | DI.ECHO.S_ITS ---
[facility] +---------+ Hospital : : [address] : : [place] : : [id number] : : Phone: [phone] Echocardiogram Report + + :Name: GISELL MASON Study Date: 01/02/2025 Height: 62 in : :[facility] ReadingLocation: Weight: 200 lb : : Gender: Female BSA: 1.9 m2 : :: 1970 Age: 54 yrs BP: 153/87 mmHg: :Reason For Study: ORTHOPNEA, CHEST PAIN : :Ordering Physician: CHAPARRO, : :JENNA Performed By: Kristopher Avila : :Referring: JENNA MAYFIELD : + + Interpretation Summary This is a somewhat technically difficult study, and next time consider [employer]. Normal LV size and mild concentric LVH; normal wall motion and LV systolic function. EF is 60-65%. Mild LA enlargement; otherwise normal chamber sizes. No significant valvular abnormalities. No prior study available for comparion. Procedure: A two-dimensional transthoracic echocardiogram with color flow and Doppler was performed. The study quality was technically difficult. There is no prior echocardiogram noted for this patient. The patient was in normal sinus rhythm during the exam. Left Ventricle: The left ventricle is normal in size. Left ventricular wall thickness is mildly increased. There is no ventricular septal defect visualized. The ejection fraction is estimated to be 60-65%. There are no focal wall motion abnormalities. Diastolic parameters suggest probable normal left ventricular diastolic function and normal filling pressures. Right Ventricle: The right ventricle is grossly normal size. The right ventricular systolic function is normal. Atria: The left atrium is mildly dilated. Right atrial size is normal. There is no Doppler evidence for an interatrial shunt. Mitral Valve: The mitral valve leaflets appear normal. There is no evidence of stenosis, fluttering, or prolapse. There is no mitral regurgitation noted. Aortic Valve: The aortic valve is not well visualized. No aortic regurgitation is present. Tricuspid Valve: The tricuspid valve leaflets are thin and pliable. No tricuspid regurgitation. Pulmonic Valve: The pulmonic valve is not well visualized. There is no pulmonic valvular regurgitation. Great Vessels: The aortic root is normal size. The dimensions of the ascending aorta are normal. The pulmonary artery is normal size. The inferior vena cava appeared normal. Pericardium/ Pleura There is no pericardial effusion. There is no pleural effusion. MMode/2D Measurements & Calculations LVIDd: 3.8 cm LVOT diam: 1.7 cm LVIDs: 2.7 cm Ao root diam: 3.0 cm FS: 29.5 % asc Aorta Diam: 2.9 cm EPSS: 0.58 cm Ao Arch Diam (Prox Trans): 1.3 cm IVSd: 1.2 cm LVPWd: 1.0 cm LV shaikh. diameter/BSA (cm/m^2): 2.0 LV sys. diameter/BSA (cm/m^2): 1.4 LA A2 area: 17.9 cm2 RA long axis: 3.6 cm LA A4 area: 22.6 cm2 RA area: 8.5 cm2 LA length (vol): 5.8 cm RA vol: 17.1 ml LA vol: 59.7 ml RA : 9.0 ml/m2 LA vol index: 31.2 ml/m2 IVC diam: 1.9 cm TAPSE: 2.7 cm Doppler Measurements & Calculations Ao V2 max: 160.4 cm/sec LVOT Max Souleymane: 110.9 cm/sec Ao V2 mean: 101.9 cm/sec LV V1 max P.9 mmHg Ao max P.3 mmHg LV V1 VTI: 24.7 cm Ao mean P.7 mmHg LOR(I,D): 1.7 cm2 Ao V2 VTI: 32.6 cm LOR(V,D): 1.6 cm2 sev ratio: 0.76 LOR indexed to BSA (cm^2/m^2): 0.91 MV E max souleymane: 106.8 cm/sec PA V2 max: 110.6 cm/sec MV A max souleymane: 83.5 cm/sec PA V2 mean: 77.2 cm/sec MV E/A: 1.3 PA mean P.7 mmHg Med Peak E' Souleymane: 8.6 cm/sec PA pr(Accel): 48.2 mmHg E/E' med: 12.4 Lat Peak E' Souleymane: 15.1 cm/sec E/E' lat: 7.1 E/e' average: 9.7 MV dec time: 0.20 sec SV(LVOT): 56.8 ml Electronically signed by: Clare Mcarthur M.D. on Reading Physician:01/02/2025 07:36 PM
[2025-01-02 17:25] LABS: Alanine Aminotransferase 39 IU/L (<35); Albumin 4.2 g/dL (3.5-5.0); Albumin Globulin Ratio 1.3 (1.0-2.8); Alkaline Phosphatase 153 U/L (38-126); Aspartate Aminotransferase 38 IU/L (14-36); BUN Creatinine Ratio 19.7 (6-22); Bilirubin Total 0.4 mg/dL (0.2-1.3); Blood Urea Nitrogen 13 mg/dL (7-17); Calcium 9.4 mg/dL (8.4-10.2); Carbon Dioxide 29 mmol/L (22-32); Chloride 103 mmol/L (98-107); Estimated Glomerular Filt Rate > 60 mL/min (>60); Globulin 3.3 g/dL (1.7-4.1); Glucose 87 mg/dL (70-99); HEMOLYSIS < 15 (0-50); Potassium 3.8 mmol/L (3.4-5.1); Sodium 140 mmol/L (137-145); Total Protein 7.5 g/dL (6.3-8.2)
== END ==
PROVIDERS: PCP Family Medicine; Referring Provider Family Medicine; Visit Provider Family Medicine
DX: M85.89 Other specified disorders of bone density and structure, multiple sites (principal); R03.0 Elevated blood-pressure reading, without diagnosis of hypertension; D86.0 Sarcoidosis of lung; E55.9 Vitamin D deficiency, unspecified
CPT/HCPCS: 36415; 77085; 80053; 82306; 93306

== ENCOUNTER → 2025-01-10 07:39 | Outpatient (CLI) | payer OTHER, SELFPAY ==
[2025-01-10 09:25] LABS: Gamma Glutamyl Transpeptidase 86 U/L (12-43); HEMOLYSIS < 15 (0-50); Iron 77 ug/dL (37-170); Lactate Dehydrogenase 268 U/L (120-246)
[2025-01-10 09:37] LABS: Percent Iron Saturation 19 % (15-50); Total Iron Binding Capacity 412 ug/dL (265-497); Transferrin 366 mg/dL (206-381)
[2025-01-10 09:45] LABS: Free T3, Triiodothyronine Free 4.43 pg/mL (2.77-5.27); Free T4, Direct Thyroxine 1.33 ng/dL (0.78-2.19)
[2025-01-10 10:07] LABS: Ferritin 56 ng/mL (11-264); Thyroid Stimulating Hormone 2.05 uIU/mL (0.47-4.68)
[2025-01-10 11:15] LABS: Erythrocyte Sedimentation Rate 51 MM/HR (0-20)
[2025-01-11 04:41] LABS: Ceruloplasmin 34.6 mg/dL (19.0-39.0); Homocysteine 10.2 umol/L (0.0-14.5); IGA 136 mg/dL (87-352); IGG 1433 mg/dL (586-1602); IGM 429 mg/dL (26-217)
[2025-01-11 06:37] LABS: Toxoplasma gohndii IgG <3.0 IU/mL (0.0-7.1); Toxoplasma gondii IgM <3.0 AU/mL (0.0-7.9)
[2025-01-11 07:36] LABS: CRP, High Sensitivity 4.97 mg/L (0.00-3.00)
[2025-01-11 09:11] LABS: EBV EBNA Antibody IgG > 600.0 U/mL (0.0-17.9); EBV Virus IgG Ab > 600.0 U/mL (0.0-17.9); EBV Virus IgM Ab < 36.0 U/mL (0.0-35.9)
[2025-01-11 17:11] LABS: Anti Thyroglobulin Antibody <1.0 IU/mL (0.0-0.9); Thyroid Peroxidase Antibodies 11 IU/mL (0-34)
[2025-01-12 10:36] LABS: Parvovirus B19 IgG 6.3 index (0.0-0.8); Parvovirus B19 IgM 0.3 index (0.0-0.8)
[2025-01-12 14:09] LABS: CMV DNA, Quant Real Time PCR Negative (Negative)
[2025-01-12 17:10] LABS: M pneumoniae IgG Ab 176 U/mL (0-99)
[2025-01-23 12:53] LABS: IgG P93 AB ABSENT
[2025-01-23 12:54] LABS: IgM P23 AB ABSENT; IgM P39 AB ABSENT; IgM P41 AB ABSENT
[2025-01-23 12:57] LABS: Lyme IgG Line Blot Interpretat NEGATIVE
[2025-01-23 12:59] LABS: Lyme IgM Line Blot Interpretat NEGATIVE
== END ==
PROVIDERS: PCP Family Medicine; Referring Provider Naturopath; Visit Provider Naturopath
DX: D86.0 Sarcoidosis of lung (principal); K74.60 Unspecified cirrhosis of liver; M05.9 Rheumatoid arthritis with rheumatoid factor, unspecified
CPT/HCPCS: 82390; 82525; 82728; 82784; 82977; 83090; 83520; 83540; 83550; 83615; 84439; 84443; 84481; 84482; 85651; 86140; 86160; 86376; 86617; 86628; 86631; 86632; 86663; 86664; 86665; 86738; 86747; 86769; 86777; 86778; 86800; 87497

== ENCOUNTER → 2025-02-21 15:33 | Outpatient (CLI) | payer OTHER, SELFPAY ==
[2025-02-21 16:18] LABS: Add Manual Diff / Slide Review NO; Hematocrit 38.7 % (36-46); Hemoglobin 13.2 g/dL (12.0-16.0); Lymphocytes Absolute Auto 1400 /uL (1100-4500); Mean Corpuscular HGB Conc 34.1 % (30-36); Mean Corpuscular Hemoglobin 29.4 PG (26-34); Mean Corpuscular Volume 86.3 fL (80-100); Platelet Count 180 X10^3/uL (150-400)
[2025-02-21 17:04] LABS: Alanine Aminotransferase 47 IU/L (<35); Albumin 4.4 g/dL (3.5-5.0); Albumin Globulin Ratio 1.3 (1.0-2.8); Alkaline Phosphatase 156 U/L (38-126); Blood Urea Nitrogen 13 mg/dL (7-17); Calcium 10.0 mg/dL (8.4-10.2); Carbon Dioxide 26 mmol/L (22-32); Chloride 106 mmol/L (98-107); Estimated Glomerular Filt Rate > 60 mL/min (>60); Globulin 3.5 g/dL (1.7-4.1); Glucose 88 mg/dL (70-99); HEMOLYSIS < 15 (0-50); Potassium 4.3 mmol/L (3.4-5.1); Sodium 139 mmol/L (137-145); Total Protein 7.9 g/dL (6.3-8.2)
== END ==
PROVIDERS: PCP Family Medicine; Referring Provider Naturopath; Visit Provider Naturopath
DX: A49.3 Mycoplasma infection, unspecified site (principal); D86.0 Sarcoidosis of lung; K74.60 Unspecified cirrhosis of liver; M05.9 Rheumatoid arthritis with rheumatoid factor, unspecified
CPT/HCPCS: 36415; 80053; 85025

== ENCOUNTER → 2025-05-09 07:51 | Outpatient (CLI) | payer OTHER, SELFPAY ==
[2025-05-14 19:36] LABS: M pneumoniae IgG Ab 130 U/mL (0-99)
== END ==
PROVIDERS: PCP Family Medicine; Referring Provider Naturopath; Visit Provider Naturopath
DX: A49.3 Mycoplasma infection, unspecified site (principal)
CPT/HCPCS: 36415; 86738

== ENCOUNTER → 2025-07-04 07:49 | Outpatient (CLI) | payer OTHER, SELFPAY ==
[2025-07-04 09:05] LABS: Gamma Glutamyl Transpeptidase 77 U/L (12-43)
[2025-07-04 09:13] LABS: Free T3, Triiodothyronine Free 3.39 pg/mL (2.77-5.27); Free T4, Direct Thyroxine 1.23 ng/dL (0.78-2.19)
[2025-07-04 09:26] LABS: Thyroid Stimulating Hormone 2.04 uIU/mL (0.47-4.68)
[2025-07-04 09:35] LABS: Ferritin 44 ng/mL (11-264)
[2025-07-05 04:36] LABS: IGA 114 mg/dL (87-352); IGG 1265 mg/dL (586-1602); IGM 356 mg/dL (26-217)
[2025-07-05 10:13] LABS: EBV Early Antigen AB,IgG 59.8 U/mL (0.0-8.9)
== END ==
PROVIDERS: PCP Family Medicine; Referring Provider Family Medicine; Visit Provider Naturopath
DX: A49.3 Mycoplasma infection, unspecified site (principal); D86.0 Sarcoidosis of lung; K74.60 Unspecified cirrhosis of liver; M05.9 Rheumatoid arthritis with rheumatoid factor, unspecified
CPT/HCPCS: 36415; 82728; 82784; 82977; 83090; 83525; 83615; 84439; 84443; 84481; 85651; 86140; 86160; 86663; 86665; 86769